=== PATIENT | female | born 1990 | race Two or more races ===

== ENCOUNTER → 2019-11-25 | Outpatient (CLI) | payer OTHER | END | disposition home or self-care (01) | LOC: PRENATAL 09:57 | PROVIDERS: ATTEND Obstetrics & Gynecology Maternal & Fetal Medicine | DX: O35.0XX1 Maternal care for (suspected) central nervous system malformation in fetus, fetus 1 (principal); O98.512 Other viral diseases complicating pregnancy, second trimester; O35.3XX1 Maternal care for (suspected) damage to fetus from viral disease in mother, fetus 1; Z36.89 Encounter for other specified antenatal screening; Z3A.21 21 weeks gestation of pregnancy ==

== ENCOUNTER 2020-03-16 14:15 | Inpatient (IN) | payer OTHER ==
[~2020-03-16] VITALS: Ht 162.6 cm; Wt 78.9 kg
[2020-04-01] MEDS ORDERED: PRENATAL CAPLE1 EAC1 PO (14:38)
== END 2020-04-03 12:11 | disposition home or self-care (01) | DRG 768 ==
LOC: OB/GYN 04-01 14:27 → LDR 04-01 14:27 → OB/GYN 04-01 19:10 → LDR 04-05 14:15
PROVIDERS: ADMIT Obstetrics & Gynecology; ATTEND Obstetrics & Gynecology
PROC: 10E0XZZ Delivery of Products of Conception, External Approach (ICD-10-PCS; principal; 2020-04-01)
PROC: 0DQR0ZZ Repair Anal Sphincter, Open Approach (ICD-10-PCS; 2020-04-01)
PROC: 0W8NXZZ Division of Female Perineum, External Approach (ICD-10-PCS; 2020-04-01)
PROC: 10907ZC Drainage of Amniotic Fluid, Therapeutic from Products of Conception, Via Natural or Artificial Opening (ICD-10-PCS; 2020-04-01)
PROC: 4A1HXFZ Monitoring of Products of Conception, Cardiac Rhythm, External Approach (ICD-10-PCS; 2020-04-01)
DX: O70.20 Third degree perineal laceration during delivery, unspecified (principal); Z37.0 Single live birth; O66.0 Obstructed labor due to shoulder dystocia; O71.82 Other specified trauma to perineum and vulva; O99.824 Streptococcus B carrier state complicating childbirth; Z3A.39 39 weeks gestation of pregnancy; Z20.828 Contact with and (suspected) exposure to other viral communicable diseases

== ENCOUNTER 2020-04-13 21:10 | Emergency (ER) | payer OTHER ==
[~2020-04-13] VITALS: Ht 162.6 cm; Wt 70.3 kg
[~2020-04-13 21:10] MED LIST: PRENATAL CAPLE1 EAC1 PO
[2020-04-14] MEDS ORDERED: KEFLEX500 MG PO (01:04)
== END 2020-04-14 01:10 | disposition home or self-care (01) ==
LOC: ER 21:10
DX: N39.0 Urinary tract infection, site not specified (principal); R51.9 Headache, unspecified

== ENCOUNTER 2020-05-12 06:00 | Day surgery (SDC) | payer OTHER ==
[~2020-05-12 06:00] MED LIST changes: +KEFLEX500 MG PO
[2020-05-12] MEDS ORDERED: COLACE100 MG PO (11:06)
[2020-05-12] MEDS ORDERED: NEURONTIN600 M1 PO (11:06)
[2020-05-12] MEDS ORDERED: PERCOCET 5-3251 EACH PO (11:06)
== END 2020-05-12 15:25 | disposition home or self-care (01) ==
LOC: CIR.AMB 06:00
PROVIDERS: ATTEND Surgery
DX: K42.0 Umbilical hernia with obstruction, without gangrene (principal); Z20.828 Contact with and (suspected) exposure to other viral communicable diseases